=== PATIENT | male | born 1965 | race Hispanic/Latino ===

== ENCOUNTER 2019-05-07 06:58 | Emergency (ER) | payer SELFPAY ==
[2019-05-07] MEDS ORDERED: LIDOCAINE-MPF (1%) 10 MG/1 ML VIAL 5 ML INFILTRATI ONE (08:06)
[2019-05-07] MEDS ORDERED: BUPIVACAINE/PF (0.5%) 5 MG/1 ML 10 ML VIAL INFILTRATI ONE (08:06)
[2019-05-07] MEDS ORDERED: ceFAZolin/NS 1 GM/50 ML 1 GM/50 ML BAG IV ONE (08:30)
--- NOTE | 2019-05-07 08:32 | XRay Report ---
LEFT FINGERS 3 VIEWS INDICATION: Trauma/LT 3RD DIGIT PAIN. COMPARISON: None. IMPRESSION: A complex soft tissue injury is identified involving the distal third digit. An overlyin g bandage has been applied. Subtle nondisplaced tuft fracture of the third digit is identified. The r emaining visualized left fingers and joint spaces are unremarkable. No soft tissue foreign body is de tected. Signer Name: Reed Pantoja Jr, MD Signed: 05/07/2019 8:27 AM Workstation Name: [id number]
[2019-05-07] MEDS ORDERED: SODIUM CHLORIDE IRRI 500 ML 500 ML IR ONE (08:48)
--- NOTE | 2019-05-07 09:14 | Emergency Department Report ---
ED General Adult HPI - General Chief complaint: Extremity Injury, Upper Stated complaint: LT HAND THIRD FINGER INJURY Time Seen by Provider: 05/07/19 08:06 Source: patient Mode of arrival: Ambulatory Limitations: No Limitations - History of Present Illness Initial comments: This is a 53-year-old male who was at work. He states he took a door off its hinges. It dropped and injured his left middle finger. He is essentially evulsed quite a bit of the finger pad and distal phalanx sparing the nail bed. He denied any other injury. He denies previous finger injury. -: Sudden Consistency: constant (Local pain) Associated Symptoms: denies other symptoms - Related Data Previous Rx's Medication Instructions Recorded Last Taken Type HYDROcodone/APAP 5-325 [Tur[place] 1 each PO Q6HR PRN #14 tablet 05/07/19 Unknown Rx 5/325] cephALEXin [Keflex] 500 mg PO Q6HR #30 capsule 05/07/19 Unknown Rx Allergies Allergy/AdvReac Type Severity Reaction Status Date / Time hydrocodone Allergy Itching Verified 05/07/19 07:45 ED Review of Systems ROS: Stated complaint: LT HAND THIRD FINGER INJURY Other details as noted in HPI Comment: All other systems reviewed and negative ED Past Medical Hx - Past Medical History Previous Medical History?: No - Surgical History Past Surgical History?: No - Social History Substance Use Type: None - Medications Home Medications: Home Medications Medication Instructions Recorded Confirmed Last Taken Type HYDROcodone/APAP 5-325 [[place] 1 each PO Q6HR PRN #14 tablet 05/07/19 Unknown Rx 5/325] cephALEXin [Keflex] 500 mg PO Q6HR #30 capsule 05/07/19 Unknown Rx ED Physical Exam - General Limitations: No Limitations General appearance: alert, in no apparent distress - Head Head exam: Present: atraumatic, normocephalic - Eye Eye exam: Present: normal appearance. Absent: scleral icterus - ENT ENT exam: Present: mucous membranes moist - Neck Neck exam: Present: normal inspection - Extremities Exam Extremities exam: Present: other (The patient has an avulsion of the finger pad/distal phalanx ulnar side. The nailbed is preserved. The bone is apparently unexposed. Neurovascular exam is intact. There is some bleeding. There is devitalized fat. The joint is not affected. The finger is viable.) ED Course - Reevaluation(s) Reevaluation #1: Digital nerve block was performed with good result. The finger was debrided, that is the nonviable fat. He was given Ancef IV. A Surgicel and tube dressing was placed. He is referred to orthopedics. 05/07/19 09:16 ED Medical Decision Making - Radiology Data Radiology results: image reviewed (There is a slight tuft avulsion accounting for a minimal percentage of total. There is no displacement.) Critical care attestation.: If time is entered above; I have spent that time in minutes in the direct care of this critically ill patient, excluding procedure time. ED Disposition Clinical Impression: Avulsion fracture of distal phalanx of finger Qualifiers: Encounter type: initial encounter Fracture type: open Qualified Code(s): S62.639B - Displaced fracture of distal phalanx of unspecified finger, initial encounter for open fracture Disposition: TO HOME OR SELFCARE Is pt being admited?: No Does the pt Need Aspirin: No Condition: Stable Instructions: Finger Dislocation (ED) Additional Instructions: Make an appointment for follow-up with Dr. Garcia who is an orthopedist today. He should see him within 1 to 2 days maximum. You can leave the current dressing on until then. Prescriptions: cephALEXin [Keflex] 500 mg PO Q6HR #30 capsule HYDROcodone/APAP 5-325 [[place] 5/325] 1 each PO Q6HR PRN #14 tablet PRN Reason: Pain Referrals: CHARLES CABRAL MD [Primary Care Provider] - 3-5 Days YANG GARCIA MD [Staff Physician] - 24 Hours Time of Disposition: 09:19
[2019-05-07] MEDS ORDERED: SODIUM CHLORIDE 0.9% IRR 500 ML BOTTLE IR ONE (09:20)
[2019-05-07 09:36] VITALS: BP 152/88
== END 2019-05-07 09:35 | disposition home or self-care (01) ==
LOC: ED 06:58
DX: S62.663A Nondisplaced fracture of distal phalanx of left middle finger, initial encounter for closed fracture (principal); Z79.899 Other long term (current) drug therapy; W23.1XXA Caught, crushed, jammed, or pinched between stationary objects, initial encounter; Y93.89 Activity, other specified; Y92.89 Other specified places as the place of occurrence of the external cause; Y99.8 Other external cause status
CPT/HCPCS: 64450; 73140; 96374; 99283; J0690